=== PATIENT | female | born 1955 | race American Indian/Alaskan Native ===

== ENCOUNTER 2016-06-14 09:49 | Outpatient (CLI) | payer OTHER ==
--- NOTE | 2016-06-15 11:30 | Ultrasound Report ---
THYROID ULTRASOUND:06/14/16 09:49:00 CLINICAL: Goiter. No comparison. FINDINGS: High-resolution ultrasound demonstrated an enlarged multinodular thyroid. The right lobe measures 5.1 x 2.8 x 3.0cm. The left lobe measures 5.5 x 2.5 x 2.5cm. The isthmus measures 9.0 mm AP thickness. A relatively homogeneous solid nodule of the right upper pole measures 1.9 x 0.9 x 1.5 cm. Numerous bilateral solid nodules with identical complex architecture. The largest on the right measures 2.8 x 2.7 x 2.7 cm. A upper pole right complex nodule measures 1.1 x 0.7 x 1.5 cm and a right lower pole complex nodule measures 1.6 x 1.6 x 1.5 cm. Complex solid nodules in the left upper pole measure 1.5 x 1.0 x 1.5 cm and 1.6 x 0.9 x 1.7 cm. Complex solid nodules of the left lower pole measure 2.3 x 1.3 x 1.9 cm and 2.6 x 1.4 x 1.8 cm. IMPRESSION: 1. Enlarged multinodular thyroid. 2. All but one of the nodules have identical complex architecture and are probably benign. A 1.9 cm right upper pole nodule has more homogeneous solid architecture and is more suspicious. Consider ultrasound-guided FNA of this nodule.
== END 2016-06-14 09:50 | disposition home or self-care (01) ==
LOC: SPVWC 09:49
PROVIDERS: ATTEND Family Medicine
DX: E04.2 Nontoxic multinodular goiter (principal)
CPT/HCPCS: 76536

== ENCOUNTER 2016-08-21 14:20 | Outpatient (CLI) | payer OTHER ==
--- NOTE | 2016-08-21 16:43 | Mammography Report ---
BONE DEXA:08/21/16 14:20:00 CLINICAL: Postmenopausal. COMPARISON: None. TECHNIQUE: Two site bone DEXA performed on an Hologic scanner. FINDINGS: The average BMD of the lumbar spine L1-L4 is 1.027g/cm squared with a T-score of -1.1 and a Z-score of +0.5. The average BMD of the left hip is 0.929g/cm squared with a T-score of -0.7 and a Z-score of +0.1. However, the femoral neck BMD is 0.784g/cm squared with a T score of -1.2 and a Z score of -0.1 IMPRESSION: WHO classification: Osteopenia with increased fracture risk based on both spine and left femoral neck measurements. RECOMMENDATION: Clinical correlation and routine screening. DEFINITIONS: BMD = Bone Mineral Density T-score = BMD related to mean peak bone mass of young adult (mean expressed in Standard Deviation) Z-score = Age matched BMD expressed in SD World Health Organization (WHO) Diagnostic Criteria Normal T-score > -1 SD Osteopenia T-score between -1 and -2.4 SD Osteoporosis T-score -2.5 SD or below NOTE: BMD is not the only risk factor for fracture; also consider factors such as the patient's age, risk of falling, previous osteoporotic fracture, family history of osteoporotic fractures, current smoker, and low body weight. Z-scores are not calculated if >80 years of age.
== END 2016-08-21 14:21 | disposition home or self-care (01) ==
LOC: SPVWC 14:20
PROVIDERS: ATTEND Internal Medicine Endocrinology, Diabetes & Metabolism
DX: M85.88 Other specified disorders of bone density and structure, other site (principal); E83.52 Hypercalcemia; Z78.0 Asymptomatic menopausal state
CPT/HCPCS: 77080

== ENCOUNTER 2016-11-23 10:40 | Outpatient (CLI) | payer OTHER ==
--- NOTE | 2016-11-23 13:54 | Mammography Report ---
BILATERAL DIGITAL SCREENING MAMMOGRAM with CAD: 11/23/16 10:40:00 CLINICAL: Routine screening. COMPARISON:None. FINDINGS: The breasts are heterogeneously dense, which may obscure small masses. No mass, architectural distortion or suspicious calcifications. IMPRESSION: No mammographic evidence of malignancy. BI-RADS CATEGORY: 1 - - Negative RECOMMENDATION: Routine mammographic screening in one year. COMMENT: Patient follow-up letters are generated by our [employer] application.
== END 2016-11-23 10:41 | disposition home or self-care (01) ==
LOC: SPVWC 10:40
PROVIDERS: ATTEND Family Medicine
DX: Z12.31 Encounter for screening mammogram for malignant neoplasm of breast (principal)
CPT/HCPCS: 77067; G0202

== ENCOUNTER 2017-04-23 09:29 | Outpatient (CLI) | payer OTHER ==
--- NOTE | 2017-04-23 16:01 | Ultrasound Report ---
THYROID ULTRASOUND:04/23/17 09:29:00 CLINICAL: Followup goiter. According to the patient, she has had a right thyroid biopsy. COMPARISON: 06/14/16 FINDINGS: High-resolution ultrasound demonstrated an enlarged multinodular thyroid as seen on the last exam. The right lobe measures 5.4 x 2.8 x 3.4cm compared to 5.1 x 2.8 x 3.0 cm. The left lobe measures 5.3 x 2.0 x 2.5 centimeters compared to 5.5 x 2.5 x 2.5 cm.. The isthmus measures 8 mm AP thickness. Multiple bilateral heterogeneous solid nodules with similar architecture and several bilateral benign cysts. The largest right thyroid nodule measures 2.7 x 2.3 x 2.4 cm compared to 2.8 x 2.7 x 2.7 cm on the last exam. The largest on the left measures 1.6 x 1.4 x 1.1 cm compared to 1.5 x 1.0 x 1.5 cm. The previously described more solid suspicious nodule in the upper right lobe is smaller and measures 1.3 x 0.6 cm compared to 1.9 x 1.5 cm. IMPRESSION: Enlarged multinodular thyroid relatively stable bilateral too numerous to count nodules. The previously described suspicious right upper thyroid nodule is smaller and therefore is no longer suspicious.
== END 2017-04-23 09:30 | disposition home or self-care (01) ==
LOC: SPVWC 09:29
PROVIDERS: ATTEND Family Medicine
DX: E04.2 Nontoxic multinodular goiter (principal); E04.9 Nontoxic goiter, unspecified
CPT/HCPCS: 76536

== ENCOUNTER 2017-06-06 12:10 | Outpatient (CLI) | payer OTHER ==
--- NOTE | 2017-06-06 12:46 | XRay Report ---
AP CHEST: HISTORY: Cough AP view of the chest demonstrates a normal mediastinal and cardiac contour with clear lungs and normal bony and soft tissue structures. IMPRESSION: Unremarkable AP chest.
== END 2017-06-06 12:11 | disposition home or self-care (01) ==
LOC: XRAY 12:10
PROVIDERS: ATTEND Family Medicine
DX: R05 Cough (principal)
CPT/HCPCS: 71045

== ENCOUNTER 2017-07-26 09:51 | Outpatient (CLI) | payer OTHER ==
--- NOTE | 2017-07-27 13:44 | Cat Scan Report ---
CT SINUSES WITHOUT CONTRAST INDICATION: Chronic sinusitis. COMPARISON: None similar. FINDINGS: Noncontrast sinus CT demonstrates fairly midline nasal septum. Slight reverse configuration of the middle turbinates as on coronal image 32. Clear aerated paranasal sinuses and mastoid air cells. Normal imaged intracranial appearance. Unremarkable eye globes. Mild atherosclerotic ICA calcifications. Few radiopaque dental fillings. CONCLUSION: No significant sinus CT abnormality with few incidental findings, as above. Thank you for the opportunity to participate in this patient's care.
== END 2017-07-26 09:52 | disposition home or self-care (01) ==
LOC: CT 09:51
PROVIDERS: ATTEND Physician Assistant Medical
DX: J32.9 Chronic sinusitis, unspecified (principal)
CPT/HCPCS: 70486

== ENCOUNTER 2017-11-25 09:41 | Outpatient (CLI) | payer SELFPAY ==
--- NOTE | 2017-11-25 10:20 | Mammography Report ---
Screening mammogram: Routine views are compared to her prior examination in November 2016. A heterogeneous pattern which is symmetrically distributed. The fibroglandular pattern on the left side remains unchanged and unremarkable. In the medial right breast on the CC projection there is some question concerning adjacent circumscribed appearing densities which are not clearly visualized on her prior exam. The lateral projection however remains unchanged. The remainder of the right breast pattern is unchanged and unremarkable. CAD used. Impressions: Questionable right asymmetries. Recommendation: Additional compression imaging of the right breast and ultrasound as needed. BI-RADS CATEGORY: 0 = Needs additional imaging evaluation ACR BI-RADS MAMMOGRAPHIC CODES: 0 = Needs additional imaging evaluation; 1 = Negative; 2 = Benign; 3 = Probably benign; 4 = Suspicious; 5 = Malignant; 6 = Known biopsy-proven malignancy COMMENT: 1. Dense breast tissue, i.e., adenosis, fibrocystic changes, etc., may obscure an underlying neoplasm. 2. Approximately 10% of cancers are not detected with mammography. 3. A negative mammography report should not delay biopsy if a clinically suspicious mass is present.
== END 2017-11-25 09:42 | disposition home or self-care (01) ==
LOC: SPVWC 09:41
PROVIDERS: ATTEND Family Medicine
DX: Z12.31 Encounter for screening mammogram for malignant neoplasm of breast (principal)
CPT/HCPCS: 77067

== ENCOUNTER 2017-12-06 09:23 | Outpatient (CLI) | payer OTHER ==
--- NOTE | 2017-12-06 10:41 | Mammography Report ---
RIGHT DIGITAL DIAGNOSTIC MAMMOGRAM : 12/06/17 09:23:00 CLINICAL: Recalled for asymmetries. COMPARISON:11/25/17 screening FINDINGS: Additional mammographic views were performed and are negative. IMPRESSION: Negative Mammogram. BI-RADS CATEGORY: 1 -- Negative RECOMMENDATION: Routine mammographic screening in one year. ACR BI-RADS MAMMOGRAPHIC CODES: 0 = Needs additional imaging evaluation; 1 = Negative; 2 = Benign; 3 = Probably benign; 4 = Suspicious; 5 = Malignant; 6 = Known biopsy-proven malignancy COMMENT: 1. Dense breast tissue, i.e., adenosis, fibrocystic changes, etc., may obscure an underlying neoplasm. 2. Approximately 10% of cancers are not detected with mammography. 3. A negative mammography report should not delay biopsy if a clinically suspicious mass is present. COMMENT: Patient follow-up letters are generated via our [email or web address] application.
== END 2017-12-06 09:24 | disposition home or self-care (01) ==
LOC: SPVWC 09:23
PROVIDERS: ATTEND Family Medicine
DX: R92.8 Other abnormal and inconclusive findings on diagnostic imaging of breast (principal)

== ENCOUNTER 2018-05-15 09:41 | Outpatient (CLI) | payer OTHER ==
--- NOTE | 2018-05-15 11:51 | Ultrasound Report ---
Thyroid ultrasound: Patient with known goiter. The right lobe measures 4.8 x 2.2 x 3.1 cm and the left lobe measures 4.9 x 2.0 x 2.8 cm. There multiple lesions in both lobes. The lesions all appear partially or completely circumscribed. No calcifications are noted. A few scattered cysts are also present. Comparison to her most recent prior examination of April 2017 was somewhat difficult due to what appear to be some technical differences in the 2 exams. Measurements of the lesions also differed slightly from prior exams however there are no major differences identified. The largest lesion on the right measures 3.4 cm and is located in the mid thyroid lobe and on the left the largest is inferiorly measuring 2.7 cm. On the prior exam the left inferior lesion did not appear to be measured for comparison but an estimate indicated a similar size. Impression: Enlarged thyroid gland with multinodular goiter. No focally suspicious finding nor significant change from prior exam identified.
== END 2018-05-15 09:42 | disposition home or self-care (01) ==
LOC: SPVWC 09:41
PROVIDERS: ATTEND Family Medicine
DX: E04.9 Nontoxic goiter, unspecified (principal)
CPT/HCPCS: 76536

== ENCOUNTER 2019-01-27 10:14 | Outpatient (CLI) | payer OTHER ==
--- NOTE | 2019-01-28 11:07 | Mammography Report ---
BONE DEXA CLINICAL: Postmenopausal. COMPARISON: 08/21/2016 TECHNIQUE: 2 site bone DEXA performed on an Hologic scanner. FINDINGS: The average BMD of the lumbar spine L1-L4 is 1.074g/cm squared with a T score of -0.7 and a Z score o f +1.1. This compares to 1.027g/cm squared on the last exam and represents a +4.5 % change from the [ previous baseline]. The average BMD of the left hip is 1.011 g/cm squared with a T score of -0.1and a Z score of +0.8. Th is compares to 0.929 g/cm squared on the last exam and represents a +8.8 % change from the [previous baseline]. IMPRESSION: 1. WHO classification: Normal with average fracture risk based on spine measurements. 2. WHO classification Normal with average fracture risk based on left hip measurements. 3. Significant improvement in both spine and hip BMD compared to the last exam. RECOMMENDATION: Clinical correlation and routine screening. Definitions: BMD equal bone mineral density T score = BMD related to peak bone mass of young adult (Alisson expressed an standard deviation) Z score = age-matched BMD expressed in SD World health organization (WHO) diagnostic criteria Normal T score greater than equal to 1 standard deviation Osteopenia T score between -1 and -2.4 standard deviation Osteoporosis T score -2.5 standard deviation or below. Note: BMD is not the only risk factor for fracture; also consider factors such as the patient's age, risk of falling, previous osteoporotic fracture, family history of osteoporotic fractures, current sm oker and low body weight. Z scores are not calculated if greater than 80 years of age. Signer Name: Martin Torres MD Signed: 01/28/2019 11:03 AM Workstation Name: [id number]
--- NOTE | 2019-01-28 11:09 | Mammography Report ---
DIGITAL SCREENING MAMMOGRAM WITH CAD, 01/27/2019 INDICATION: Routine screening mammography. TECHNIQUE: Digital bilateral 2D mammography was obtained in the craniocaudal and mediolateral obliq ue projections. This examination was interpreted with the benefit of Computer-Aided Detection analysi s. COMPARISON: 11/25/2017 FINDINGS: Breast Density: The breasts are heterogeneously dense, which may obscure small masses. There is no evidence of dominant mass, suspicious calcifications or architectural distortion in eithe r breast. IMPRESSION: No mammographic evidence of malignancy. Follow up recommendation: Routine yearly BI-RADS Category 1: Negative. A "normal" or negative report should not discourage follow up or biopsy of a clinically significant f inding. A written summary of these findings will be mailed to the patient. The patient will be entered into a mammography reporting system which will generate a reminder letter for the patient's next appointmen t at the appropriate interval. The [employer] recommends yearly mammograms starting at age 40 and continuing as l sai as a woman is in good health. Breast MRI is recommended for women with an approximate 20-25% or greater lifetime risk of breast cancer, including women with a strong family history of breast or ova halima cancer or who have been treated for Hodgkin's disease. Signer Name: Martin Torres MD Signed: 01/28/2019 11:04 AM Workstation Name: [id number]
== END 2019-01-27 10:15 | disposition home or self-care (01) ==
LOC: SPVWC 10:14
PROVIDERS: ATTEND Family Medicine
DX: Z12.31 Encounter for screening mammogram for malignant neoplasm of breast (principal); Z13.820 Encounter for screening for osteoporosis; Z78.0 Asymptomatic menopausal state
CPT/HCPCS: 77067; 77080

== ENCOUNTER 2019-06-08 10:24 | Outpatient (CLI) | payer OTHER ==
--- NOTE | 2019-06-08 12:55 | Ultrasound Report ---
ULTRASOUND THYROID INDICATION: GOITER. COMPARISON: Ultrasound dated 05/15/2018 FINDINGS: Right Lobe: Size: 10 cm. Echogenicity: Heterogeneous Left Lobe: Size: 10.8 cm. Echogenicity: Heterogeneous Isthmus: Heterogeneous Nodules: There are multiple nodules throughout the thyroid. The largest lesion on the right measures approxima tely 3.5 cm and appears unchanged. Nodule in the isthmus measures up to 3.2 cm and appears unchanged. Nodule in the upper pole of the left kidney and upper pole the right kidney appears similar to the p rior study. NODULE in the mid left lobe is increased in size in the interval Location: left mid Size: 3.3 x 1.5 x 2.2 previously measured 2.7 x 1.7 x 1.9 cm Composition: Solid = 2 points Echogenicity: Hypoechoic = 2 points Shape: Fhovo-eafm-yhgg = 0 points Margin: Ill-defined = 0 points Echogenic Foci: None = 0 points ACR TI-RADS Score = 4. ACR TI-RADS Category TR4 (4-6 points). Recommendation: FNA. Lymph nodes: No abnormal lymph nodes Additional findings: None. IMPRESSION: 1. The thyroid gland is markedly enlarged. There are multiple nodules bilaterally most of which are T I RADS 3 and 4 by appear similar to the prior study. A nodule in the mid left lobe of the thyroid has mildly increased in size in the interval. This is a TIRADS 4 nodule . Because of the increase in siz e, fine-needle aspiration biopsy is recommended. ACR TI-RADS Recommendations TI-RADS 1 (0 points) -- Benign. No FNA or follow-up. TI-RADS 2 (1-2 points) -- Not suspicious. No FNA or follow-up. TI-RADS 3 (3 points) -- Mildly suspicious. Follow if 1.5 cm. FNA if 2.5 cm. TI-RADS 4 (4-6 points) -- Moderately suspicious. Follow if 1.0 cm. FNA if 1.5 cm. TI-RADS 5 (7+ points) -- Highly suspicious. Follow if 0.5 cm. FNA if 1.0 cm. Signer Name: Vinicius Rios MD Signed: 06/08/2019 12:51 PM Workstation Name: [id number]
== END 2019-06-08 10:25 | disposition home or self-care (01) ==
LOC: SPVWC 10:24
PROVIDERS: ATTEND Family Medicine
DX: E04.2 Nontoxic multinodular goiter (principal); E04.9 Nontoxic goiter, unspecified
CPT/HCPCS: 76536

== ENCOUNTER 2019-12-23 10:55 | Outpatient (CLI) | payer OTHER ==
--- NOTE | 2019-12-23 13:37 | Ultrasound Report ---
ULTRASOUND THYROID INDICATION / CLINICAL INFORMATION: GOITER. COMPARISON: Thyroid ultrasound from 06/08/2019. FINDINGS: RIGHT LOBE: Size = 5.9 x 2.5 x 3.7 cm. Generalized heterogeneity. No hyperemia LEFT LOBE: Size = 6.2 x 3.4 x 3.1 cm. Generalized heterogeneity. No hyperemia ISTHMUS: 0.9 cm. NODULES: Nodules are present as described below. Please note that nodules less than 5 mm are not desc ribed per TIRADS criteria and a maximum of 4 nodules will be described. NODULE # 1 -- Location: right upper -- Size: 2.5 x 1.3 x 1.8 cm. Previously 1.6 x 1.6 x 1.8 cm. -- Composition: Solid = 2 points -- Echogenicity: Hypoechoic = 2 points -- Shape: Krecw-htth-ivxe = 0 points -- Margin: Smooth = 0 points -- Echogenic Foci: None = 0 points -- ACR TI-RADS Score = 4. NODULE # 2 -- Location: right lower -- Size: 4.0 x 2.8 x 3.7 cm. Previously 3.2 x 2.3 x 2.4 cm. -- Composition: Solid = 2 points -- Echogenicity: Hypoechoic = 2 points -- Shape: Xmxkl-xzia-eujl = 0 points -- Margin: Smooth = 0 points -- Echogenic Foci: None = 0 points -- ACR TI-RADS Score = 4. NODULE # 3 -- Location: isthmus -- Size: 3.6 x 1.8 x 2.6 cm. Previously 3.2 x 1.7 x 2.4 cm. -- Composition: Solid = 2 points -- Echogenicity: Hypoechoic = 2 points -- Shape: Izhhy-pdwa-wjlj = 0 points -- Margin: Smooth = 0 points -- Echogenic Foci: None = 0 points -- ACR TI-RADS Score = 4. NODULE # 4 -- Location: left upper -- Size: 2.8 x 2.0 x 2.0 cm. Previously 2.7 x 1.8 x 1.9 cm. -- Composition: Solid = 2 points -- Echogenicity: Hypoechoic = 2 points -- Shape: Cjldw-tift-iigx = 0 points -- Margin: Smooth = 0 points -- Echogenic Foci: None = 0 points -- ACR TI-RADS Score = 4. LYMPH NODES: No abnormal lymph nodes. PARATHYROID GLANDS: No abnormal parathyroid gland identified. ADDITIONAL FINDINGS: None. IMPRESSION: Multinodular goiter with enlargement of right thyroid nodules and stable isthmic and left thyroid nod ules as detailed above. Biopsy of the larger right thyroid nodules is recommended if not performed pr eviously. NOTE: Nodule size based on mean (average) size of 3 dimensions. NOTE: Nodules < 1 cm do not typically require follow-up or FNA unless there are suspicious features ( WILLIAN, 2015) ACR TI-RADS Thyroid Nodule Recommendations TI-RADS 1 (0 points) ----- BENIGN. No Fine Needle Aspirate biopsy (FNA) or follow-up. TI-RADS 2 (1-2 points) -- NOT SUSPICIOUS. No FNA or follow-up. TI-RADS 3 (3 points) ----- MILDLY SUSPICIOUS. Follow up in 1 year if >= 1.5 cm. FNA if >= 2.5 cm. TI-RADS 4 (4-6 points) -- MODERATELY SUSPICIOUS. Follow up in 1 year if >= 1.0 cm. FNA if >= 1.5 cm. TI-RADS 5 (7+ points) --- HIGHLY SUSPICIOUS. Follow up in 1 year if >= 0.5 cm. FNA if >= 1.0 cm. Signer Name: Irving Hansen MD Signed: 12/23/2019 1:33 PM Workstation Name: [id number]
== END 2019-12-23 10:56 | disposition home or self-care (01) ==
LOC: SPVWC 10:55
PROVIDERS: ATTEND Family Medicine
DX: E04.2 Nontoxic multinodular goiter (principal)
CPT/HCPCS: 76536

== ENCOUNTER 2020-02-01 09:26 | Outpatient (CLI) | payer OTHER ==
--- NOTE | 2020-02-01 10:10 | Mammography Report ---
DIGITAL SCREENING MAMMOGRAM WITH CAD, 02/01/2020 CLINICAL INFORMATION / INDICATION: Routine screening mammography. TECHNIQUE: Digital bilateral 2D mammography was obtained in the craniocaudal and mediolateral obliqu e projections. This examination was interpreted with the benefit of Computer-Aided Detection analysis . COMPARISON: Prior mammograms 01/27/2019 and 11/25/2017 FINDINGS: Breast Density: The breasts are heterogeneously dense, which may obscure small masses. No dominant mass, suspicious calcifications, or architectural distortion in either breast. There has been no significant change compared with the prior examinations. IMPRESSION: No mammographic evidence of malignancy. Follow up recommendation: Routine yearly BI-RADS Category 1: Negative. A "normal" or negative report should not discourage follow up or biopsy of a clinically significant f inding. A written summary of these findings will be mailed to the patient. The patient will be entered into a mammography reporting system which will generate a reminder letter for the patient's next appointmen t at the appropriate interval. The [employer] recommends yearly mammograms starting at age 40 and continuing as l sai as a woman is in good health. Breast MRI is recommended for women with an approximate 20-25% or greater lifetime risk of breast cancer, including women with a strong family history of breast or ova halima cancer or who have been treated for Hodgkin's disease. Signer Name: Peggy Menezes MD Signed: 02/01/2020 10:06 AM Workstation Name: [email or web address]
== END 2020-02-01 09:27 | disposition home or self-care (01) ==
LOC: SPVWC 09:26
PROVIDERS: ATTEND Family Medicine
DX: Z12.31 Encounter for screening mammogram for malignant neoplasm of breast (principal)
CPT/HCPCS: 77067

== ENCOUNTER 2021-02-08 11:14 | Outpatient (CLI) | payer MEDICARE | END 2021-02-08 11:15 | disposition home or self-care (01) | LOC: SPVWC 11:14 | PROVIDERS: ATTEND Family Medicine | DX: Z12.31 Encounter for screening mammogram for malignant neoplasm of breast (principal) | CPT/HCPCS: 77067 ==